=== PATIENT | female | born 1985 | race Caucasian/White ===

== ENCOUNTER 2017-02-11 19:55 | Emergency (ER) | payer OTHER ==
[~2017-02-11] VITALS: Ht 157.5 cm; Wt 60.1 kg
[2017-02-11 20:36] LABS: HEMATOCRIT 40.9 % (36.0-46.0); MCH 29.9 PG (29.0-34.0); MCHC 34.7 G/DL (30.0-36.0); MCV 86.1 FL (83-99); MEAN PLAT.VOLUME 9.6 uM^3 (9.5-12.4); PLATELET COUNT 244 K/uL (156-360); RBC DIS.WIDTH-CV 12.5 % (11.8-14.6); RBC DIS.WIDTH-SD 39.3 % (39-53); RED BLOOD COUNT 4.75 M/uL (3.80-5.20); WHITE BLOOD COUNT 11.4 K/uL (4.1-10.2)
[2017-02-11 20:46] LABS: CHLORIDE 106 mEq/L (99-109); POTASSIUM 3.6 mEq/L (3.7-5.4); SODIUM 139 mEq/L (136-147)
[2017-02-11 20:48] LABS: GLUCOSE 98 mg/dL (70-99)
[2017-02-11 20:49] LABS: ANION GAP 10 MEQ/L (2-14)
[2017-02-11 20:50] LABS: TOTAL BILIRUBIN 0.4 mg/dL (0.0-1.0)
[2017-02-11 20:51] LABS: ALKALINE PHOSPHATASE 48 IU/L (3-129)
[2017-02-11 20:52] LABS: GFR ESTIMATE (CALCULATED) > 59 mL/min/
[2017-02-11 20:53] LABS: UREA NITROGEN (BUN) 7 mg/dL (9-23)
[2017-02-11 21:00] LABS: QUANTITATIVE HCG 680.4 MIU/ML
[2017-02-11] MEDS ORDERED: NAPROSYN500 MG PO (22:10)
[2017-02-11 23:28] VITALS: BP 102/56
== END 2017-02-11 23:41 | disposition home or self-care (01) ==
LOC: EME → EDBD 19:55 → EME 19:55
PROVIDERS: Emergency Medicine
DX: O03.9 Complete or unspecified spontaneous abortion without complication (principal); Z3A.16 16 weeks gestation of pregnancy; O99.332 Smoking (tobacco) complicating pregnancy, second trimester; F17.200 Nicotine dependence, unspecified, uncomplicated
CPT/HCPCS: 76856; 80053; 84702; 85027; 86900; 86901; 88300; 99281; 99285; J2405; J7030

== ENCOUNTER 2018-03-07 17:56 | Outpatient (CLI) | payer OTHER ==
[~2018-03-07] VITALS: Ht 165.1 cm; Wt 68.5 kg
[~2018-03-07 17:56] MED LIST: NAPROSYN500 MG PO
[2018-03-07 19:02] LABS: BASOPHIL (%) 0.3 % (0-1); EOSINOPHIL (%) 1.9 % (0-5); EOSINOPHIL COUNT 0.3 K/uL (0-0.3); HEMATOCRIT 36.9 % (36.0-46.0); HEMOGLOBIN 12.8 G/DL (11.9-15.5); IMMATURE GRANULOCYTE (%) 0.7 % (0.0-0.7); LYMPHOCYTE COUNT 3.2 K/uL (1.0-2.8); MCH 30.7 PG (29.0-34.0); MCHC 34.7 G/DL (30.0-36.0); MCV 88.5 FL (83-99); MONOCYTE (%) 7.1 % (3-12); MONOCYTE COUNT 0.9 K/uL (0-0.8); NEUTROPHIL COUNT 8.4 K/uL (1.8-6.4); PLATELET COUNT 258 K/uL (156-360); RBC DIS.WIDTH-CV 13.6 % (11.8-14.6); RBC DIS.WIDTH-SD 43.9 % (39-53); RED BLOOD COUNT 4.17 M/uL (3.80-5.20); WHITE BLOOD COUNT 12.9 K/uL (4.1-10.2)
[2018-03-07 19:22] LABS: AMPHETAMINE NEGATIVE (500 ng/mL); BARBITURATES NEGATIVE (200 ng/mL); BENZODIAZEPINES NEGATIVE (150 ng/mL); BUPRENORPHINE PRESUMPTIVE POSITIVE (10 ng/mL); COCAINE NEGATIVE (150 ng/mL); METHADONE NEGATIVE (200 ng/mL); METHAMPHETAMINE NEGATIVE (500 ng/mL); OPIATES (MORPHINE) NEGATIVE (100 ng/mL); OXYCODONE NEGATIVE (100 ng/mL); PHENCYCLIDINE NEGATIVE (25 ng/mL); PROPOXYPHENE NEGATIVE (300 ng/mL); THC CANNABINOIDS NEGATIVE (50 ng/mL); TRICYCLIC ANTIDEPRESSANTS NEGATIVE (300 ng/mL)
== END 2018-03-07 22:30 | disposition home or self-care (01) ==
LOC: LDRP-OP 17:56 → 2WEST 17:57
PROVIDERS: Nurse Practitioner
DX: O9A.213 Injury, poisoning and certain other consequences of external causes complicating pregnancy, third trimester (principal); Z3A.33 33 weeks gestation of pregnancy; O99.323 Drug use complicating pregnancy, third trimester; V49.9XXA Car occupant (driver) (passenger) injured in unspecified traffic accident, initial encounter
CPT/HCPCS: 59025; 76805; 85025; 85460; G0378; J0571; J7120